=== PATIENT | male | born 1970 | race Caucasian/White ===

== ENCOUNTER 2020-01-27 07:19 | Outpatient (CLI) | payer OTHER, SELFPAY ==
--- NOTE | ~2020-01-27 | NM_ITS ---
EXAMINATION: NM hepatobiliary w pharm EXAM DATE: 01/27/2020 09:49 INDICATION: Chronic RUQ pain TECHNIQUE: 4.6 mCi Tc-99m mebrofenin (Choletec) was administered intravenously. Scintigraphic image s of the abdomen were obtained for one hour. At the 1 hour time point, 1.7 mcg sincalide (Kinevac) wa s administered by slow intravenous infusion, and imaging was continued for 30 minutes. Gallbladder ej ection fraction was calculated by the technologist. There is no prior study for comparison. FINDINGS: There is normal clearance of radiotracer from the blood pool. There is homogeneous tracer u ptake by the liver. Activity progresses to the gallbladder and bowel. The gallbladder ejection fract ion (GBEF) is 87 % (most patients with gallbladder dysfunction have GBEF < 35%, but there is overlap with the normal range of 10-90%). IMPRESSION: Gallbladder ejection fraction 87%, within normal range. Reviewed, dictated and finalized at location A. [employer] REPRESENTATIVE
== END 2020-01-27 07:20 | disposition home or self-care (01) ==
LOC: ANHIMG 07:26
DX: R10.11 Right upper quadrant pain (principal)
CPT/HCPCS: 78227; A9537; J2805